=== PATIENT | male | born 1985 | race Caucasian/White ===

== ENCOUNTER 2017-05-04 19:18 | Emergency (ER) | payer BC ==
[2017-05-04] MEDS ORDERED: Ketorolac 60 MG/2 ML SDV IM ONE (19:45)
[2017-05-04 19:48] VITALS: BP 121/76
--- NOTE | 2017-05-04 19:48 | EDM.PDOC ---
ED HPI GENERAL MEDICAL PROBLEM - General Chief Complaint: Lower Extremity Injury/Pain Stated Complaint: PAIN LT KNEE Time Seen by Provider: 05/04/17 19:42 Source of Information: Reports: Patient History Limitations: Reports: No Limitations - History of Present Illness INITIAL COMMENTS - FREE TEXT/NARRATIVE: HISTORY AND PHYSICAL: []31-year-old male presenting with left knee pain History of Present Illness: [] He reports no injury, but was pulling softball last night has never had pain like this in his life Pain is worse when standing on his leg Review of Systems: As per history of present illness and below otherwise all systems reviewed and negative. Past medical history: As per history of present illness and as reviewed below otherwise noncontributory. Surgical history: As per history of present illness and as reviewed below otherwise noncontributory. Social history: No reported history of drug or alcohol abuse. Family history: As per history of present illness and as reviewed below otherwise noncontributory. Physical exam: Alert and oriented gentleman who is in obvious distress answer questions appropriately in full sentences no shortness of breath HEENT: Atraumatic, normocehpalic, pupils reactive, negative for conjunctival pallor or scleral icterus, mucous membranes moist, throat clear, neck supple, nontender, trachea midline. Lungs: Clear to auscultation, breath sounds equal bilaterally, chest non tender. Heart: S1S2, regular, negative for clicks, rubs, or JVD. Abdomen: Soft, nondistended, nontender. Negative for masses or hepatossplenmegaly. Negative for costovertebral tenderness. Pelvis: Stable nontender. Genitourinary: Deferred. Rectal: Deferred Extremities: Atraumatic, negative for cords or calf pain. No edema. pain is posterior Neurovascular unremarkable. Neuro: Awake, alert, oriented. Cranial nerves II through XII unremarkable. Cerebellum unremarkable. Motor and sensory unremarkable throughout. Exam nonfocal. Discussed with patient the negative x-rays likely a tendon or muscle pull. Offered referral to orthopedics which was declined Diagnostics: [X-rays left knee] Therapeutics: [lilia wrap] Impression: []knee pain Plan: []lilia wrap elevate and ice ibuprofen OTC Definitive disposition and diagnosis as appropriate pending reevaluation and review of above. Onset: Sudden Duration: Hour(s):, Getting Worse Location: Reports: Lower Extremity, Left Left Posterior Knee Pain Score (Numeric/FACES): 6 - Related Data Allergies Allergy/AdvReac Type Severity Reaction Status Date / Time No Known Allergies Allergy Verified 05/04/17 19:51 Home Meds: Home Meds Ibuprofen [Advil] 400 mg PO 05/04/17 [History] Review of Systems - Review of Systems Review Of Systems: ROS reveals no pertinent complaints other than HPI. ED EXAM, GENERAL - Physical Exam Exam: See Below (see dictation) Course - Vital Signs Last Recorded V/S: Last Vital Signs Temp 36.3 C 05/04/17 19:45 Pulse 78 05/04/17 19:45 Resp 16 05/04/17 19:45 BP 121/76 05/04/17 19:45 Pulse Ox 96 05/04/17 19:45 - Orders/Labs/Meds Orders: Active Orders 24 hr Category Date Time Status Splinting [RC] ASDIRECTED Care 05/04/17 20:59 Active Knee Min 4V Lt [CR] Stat Exams 05/04/17 19:45 Taken Meds: Medications Discontinued Medications Generic Name Dose Route Start Last Admin Trade Name Reyna PRN Reason Stop Dose Admin Ketorolac Tromethamine 60 mg 05/04/17 19:45 05/04/17 20:12 Toradol IM 05/04/17 19:46 60 mg ONETIME ONE Administration Departure - Departure Time of Disposition: 21:03 Disposition: Home, Self-Care 01 Condition: Good Clinical Impression: Knee pain, left Qualifiers: Chronicity: acute Qualified Code(s): M25.562 - Pain in left knee - Discharge Information Instructions: Knee Sprain, [id number] Forms: ED Department Discharge Additional Instructions: The following information is given to patients seen in the emergency department who are being discharged to home. This information is to outline your options for follow-up care. We provide all patients seen in our emergency department with a follow-up referral. The need for follow-up, as well as the timing and circumstances, are variable depending upon the specifics of your emergency department visit. If you don't have a primary care physician on staff, we will provide you with a referral. We always advise you to contact your personal physician following an emergency department visit to inform them of the circumstance of the visit and for follow-up with them and/or the need for any referrals to a consulting specialist. The emergency department will also refer you to a specialist when appropriate. This referral assures that you have the opportunity for followup care with a specialist. All of these measure are taken in an effort to provide you with optimal care, which includes your followup. Under all circumstances we always encourage you to contact your private physician who remains a resource for coordinating your care. When calling for followup care, please make the office aware that this follow-up is from your recent emergency room visit. If for any reason you are refused follow-up, please contact the [facility] emergency department at and asked to speak to the emergency department charge nurse. - My Orders Last 24 Hours: My Active Orders 05/04/17 19:45 Knee Min 4V Lt [CR] Stat 05/04/17 20:59 Splinting [RC] ASDIRECTED - Assessment/Plan Last 24 Hours: My Active Orders 05/04/17 19:45 Knee Min 4V Lt [CR] Stat 05/04/17 20:59 Splinting [RC] ASDIRECTED
--- NOTE | 2017-05-05 09:43 | CR ---
EXAM DATE: 05/04/17 PATIENT'S AGE: 31 Patient: [employer] DRIVER Facility: [place], [place] Site . Site : 1985 Study: XRay Knee [id number]/25/2017 8:44:58 PM Ordering Physician: Doctor Dunbar Final Report: INDICATION: Knee pain, no known injury. TECHNIQUE: Left knee, 4 images. COMPARISON: None FINDINGS: Bones: Alignment is normal. No acute fractures or aggressive osseous lesions seen. Joint spaces: No significant joint effusion is seen. The joint spaces of the medial, lateral, and patellofemoral compartments are unremarkable in both knees on upright AP and PA views. Soft tissues: Unremarkable. No radiopaque foreign bodies are noted. IMPRESSION: 1. No acute osseous injuries are identified. No left knee joint effusion. Dictated by Jose Alfredo Hernandez MD @ 05/04/2017 8:56:55 PM Dictated by: Jose Alfredo Hernandez MD @ 05/04/2017 20:57:00 (Electronic Signature) Report Signed by Proxy. [facility]
== END 2017-05-04 22:03 | disposition home or self-care (01) ==
LOC: MW.ED 19:18
DX: M25.562 Pain in left knee (principal)
CPT/HCPCS: 73564; 96372; 99283; J1885; 99282